=== PATIENT | female | born 1950 | race Caucasian/White ===

== ENCOUNTER 2023-07-17 14:11 | Emergency (ER) | payer BC, MEDICARE ==
[2023-07-17 14:56] LABS: #Monocytes 0.7 thou/uL (0.11-0.59); #Neutrophils 5.2 thou/uL (1.40-6.50); %Basophils 0.3 % (0.0-1.0); %Eosinophils 0.4 % (0.0-10.0); %Lymphocytes 22.2 % (21.0-51.0); %Monocytes 8.6 % (0.0-10.0); %Neutrophils 68.2 % (42.0-75.0); Hematocrit 38.9 % (36.0-47.0); Hemoglobin 13.1 g/dL (12.0-16.0); Mean Corpuscular HGB CONC 33.7 g/dL (32.0-36.0); Mean Corpuscular Hemoglobin 29.9 pg (27.0-31.0); Mean Corpuscular Volume 88.8 fl (78.0-98.0); Platelet Count 199 10x3/uL (130-400); RBC Distribution Width 13.4 % (11.5-14.5); Red Blood Cell (RBC) Count 4.38 mill/uL (4.20-5.40); White Blood Cell (WBC) Count 7.6 10x3/uL (4.8-10.8)
[2023-07-17 15:13] LABS: ALT (SGPT) 13 U/L (8-55); AST (SGOT) 22 U/L (5-34); Albumin 4.1 g/dL (3.4-4.8); Alkaline Phosphatase 79 U/L (40-110); Anion Gap 16 mmol/L (10-20); BUN (Urea Nitrogen) 8 mg/dL (9.8-20.1); Bilirubin, Total 0.7 mg/dL (0.2-1.2); Calc. Creatinine Clearance 0 mL/min (70-130); Calcium 9.2 mg/dL (7.8-10.44); Carbon Dioxide 19 mmol/L (23-31); Chloride 103 mmol/L (98-107); Estimated GFR 91; Globulin 2.4 g/dL (2.4-3.5); Glucose 88 mg/dL (83-110); Lipase 22 U/L (8-78); Protein, Total 6.5 g/dL (5.8-8.1); Sodium 134 mmol/L (136-145)
[2023-07-17 15:17] LABS: Troponin I Less than 0.010 ng/mL (< 0.028)
== END 2023-07-17 16:51 | disposition left against medical advice (07) ==
LOC: ERS 14:11
DX: Z53.21 Procedure and treatment not carried out due to patient leaving prior to being seen by health care provider (principal)
CPT/HCPCS: 36415; 71045; 80053; 83690; 84484; 85025; 93005

== ENCOUNTER → 2023-07-27 | Day surgery (SDC) | payer MEDICARE ==
[2023-07-26 10:47] VITALS: BMI 20.7
[~2023-07-27] MED LIST: Acetaminophen/Codeine 30-300mg Tablet PO PRN; Heparin 10,000 UNITS/ 10 ML VIAL ONE; Lidocaine 1% (PF) 30 ML VIAL ONE; Midazolam HCl 2 mg/2 ml Vial ONE; Nitroglycerin 0.4 MG TAB (25 Tab Bottle) SL PRN; Sodium Chloride 0.9% 1,000 ML IV SCH; fentaNYL 50 mcg/mL 1 mL Vial ONE
[2023-07-27 07:25] LABS: Cardiac Risk 3.9 (Less than 4.5)
== END ==
LOC: CCL 06:05
PROVIDERS: ATTEND Internal Medicine Cardiovascular Disease
DX: I25.10 Atherosclerotic heart disease of native coronary artery without angina pectoris (principal); E78.00 Pure hypercholesterolemia, unspecified; Z79.82 Long term (current) use of aspirin
CPT/HCPCS: 80061; 93458; C1894; J3010; 99152; 99153; J1644; J2001; J2250

== ENCOUNTER 2023-12-15 13:13 | Outpatient (CLI) | payer MEDICARE | END 2023-12-15 13:14 | disposition home or self-care (01) | LOC: BICMAMMO 13:13 | PROVIDERS: ATTEND Nurse Practitioner Family | DX: Z13.820 Encounter for screening for osteoporosis (principal); Z78.0 Asymptomatic menopausal state; M81.0 Age-related osteoporosis without current pathological fracture | CPT/HCPCS: 77080 ==

== ENCOUNTER 2025-08-10 11:08 | Outpatient (CLI) | payer MEDICARE ==
[2025-08-10 12:18] LABS: #Basophils 0.04 10x3/uL (0.0-0.2); #Eosinophils 0.08 10x3/uL (0.0-0.7); #Monocytes 0.60 10x3/uL (0.11-0.59); #Neutrophils 4.31 10x3/uL (1.40-6.50); %Basophils 0.6 % (0.0-1.0); %Eosinophils 1.1 % (0.0-10.0); %Lymphocytes 28.3 % (21.0-51.0); %Monocytes 8.5 % (0.0-10.0); %Neutrophils 61.4 % (42.0-75.0); Hematocrit 41.5 % (36.0-47.0); Hemoglobin 13.6 g/dL (12.0-16.0); Mean Corpuscular Hemoglobin 30.8 pg (27.0-31.0); Mean Corpuscular Volume 93.9 fL (78.0-98.0); Platelet Count 210 10x3/uL (130-400); Red Blood Cell (RBC) Count 4.42 mill/uL (4.20-5.40); White Blood Cell (WBC) Count 7.03 10x3/uL (4.8-10.8)
[2025-08-10 12:24] LABS: ALT (SGPT) 19 U/L (Less than 34); AST (SGOT) 35 U/L (11-34); Albumin 4.0 g/dL (3.1-4.5); Alkaline Phosphatase 84 U/L (40-110); Anion Gap 9 mmol/L (10-20); BUN (Urea Nitrogen) 17 mg/dL (9.8-20.1); Bilirubin, Total 0.5 mg/dL (0.3-1.2); Calc. Creatinine Clearance 0 mL/min (70-130); Calcium 9.2 mg/dL (7.8-10.44); Carbon Dioxide 25 mmol/L (23-31); Chloride 106 mmol/L (98-107); Globulin 2.6 g/dL (2.4-3.5); Glucose 105 mg/dL (83-110); Potassium 4.3 mmol/L (3.5-5.1); Sodium 136 mmol/L (136-145)
[2025-08-10 12:32] LABS: INR-International Normal Ratio 0.9; PTT 27.6 sec (22.9-36.1); Prothrombin Time 12.3 sec (12.0-14.7)
== END 2025-08-10 11:09 | disposition home or self-care (01) ==
LOC: LABBT 11:08
PROVIDERS: ATTEND Orthopaedic Surgery
DX: Z01.818 Encounter for other preprocedural examination (principal); M16.11 Unilateral primary osteoarthritis, right hip
CPT/HCPCS: 80053; 85025; 85610; 85730; 87081; 93005; 93010

== ENCOUNTER 2025-08-21 06:30 | Inpatient (IN) | payer MEDICARE ==
[2025-08-21] MEDS ORDERED: Tranexamic Acid 1,000 MG/10 ML VIAL ONE (07:14)
[2025-08-21] MEDS ORDERED: CEFAZOLIN 2 GM VIAL ONE ×2 (07:14→18:10)
[2025-08-21] MEDS ORDERED: Vancomycin 1 GM/200 ML (FROZEN) BAG ONE (07:15)
[2025-08-21] MEDS ORDERED: Lidocaine 1.5% w/Epi 1:200K 30 ML VIAL (Epid Use) ONE (08:10)
[2025-08-21] MEDS ORDERED: diphenhydrAMINE 50 MG/ML VIAL IVP PRN (08:30)
[2025-08-21] MEDS ORDERED: diphenhydrAMINE 25 MG CAP PO PRN (08:30)
[2025-08-21] MEDS ORDERED: HYDROcodone/Acetaminophen 5/325 mg Tablet PO PRN ×2 (08:30)
[2025-08-21] MEDS ORDERED: Ondansetron PF 4 MG/2 ML Vial IVP PRN (08:30)
[2025-08-21] MEDS ORDERED: diphenhydrAMINE 50 MG/ML VIAL IM PRN (08:30)
[2025-08-21] MEDS ORDERED: PROPOFOL 20 ML ONE (09:25)
[2025-08-21] MEDS ORDERED: Ondansetron PF 4 MG/2 ML Vial ONE (09:25)
[2025-08-21] MEDS ORDERED: Lidocaine 1% PF 5 ML VIAL ONE (09:25)
[2025-08-21] MEDS ORDERED: Rocuronium Bromide 10 MG/ML (10ML VIAL) ONE (09:25)
[2025-08-21] MEDS ORDERED: Bupivacaine 0.25% HCL 30 ML VIAL ONE (09:39)
[2025-08-21] MEDS ORDERED: SUGAMMADEX SODIUM 200 MG/2 ML VIAL ONE (10:46)
[2025-08-21] MEDS ORDERED: Acetaminophen 325 MG TAB PO PRN (12:04)
[2025-08-21] MEDS ORDERED: Ketorolac Tromethamine 30 MG (1 mL) VIAL ONE (18:08)
[2025-08-21] MEDS: Ketorolac Tromethamine 30 MG (1 mL) VIAL IVP SCH (18:17)
[2025-08-21] MEDS: Ferrous Gluconate 324 MG TAB PO SCH (21:34)
[2025-08-21] MEDS: Aspirin 81 mg Enteric Coated Tablet PO SCH (21:34)
[2025-08-21] MEDS: Senokot S 8.6-50 MG TAB PO SCH (21:34)
[2025-08-22] MEDS: FENTANYL 500 MCG/10 ML VIAL 500 MCG, Bupivacaine 0.75% 10 ML in Sodium Chloride 0.9% 80 ML EPIDURAL SCH (01:56)
[2025-08-22 05:18] LABS: Hematocrit 31.5 % (36.0-47.0); Hemoglobin 10.4 g/dL (12.0-16.0); Mean Corpuscular Hemoglobin 30.5 pg (27.0-31.0); Mean Corpuscular Volume 92.4 fL (78.0-98.0); Platelet Count 149 10x3/uL (130-400); Red Blood Cell (RBC) Count 3.41 mill/uL (4.20-5.40); White Blood Cell (WBC) Count 7.81 10x3/uL (4.8-10.8)
[2025-08-22] MEDS ORDERED: VIT C PO SCH (09:00)
[2025-08-22] MEDS ORDERED: ELDERBERRY PO SCH (09:00)
[2025-08-22] MEDS ORDERED: ZINC CITRATE PO SCH (09:00)
[2025-08-22] MEDS: Multivitamin W/ Minerals 1 TAB PO SCH (09:45)
[2025-08-22] MEDS ORDERED: HYDROcodone/Acetaminophen 10/325 mg Tablet PO PRN ×2 (10:01)
[2025-08-23 06:09] LABS: Hematocrit 32.1 % (36.0-47.0); Hemoglobin 10.4 g/dL (12.0-16.0); Mean Corpuscular Hemoglobin 30.1 pg (27.0-31.0); Mean Corpuscular Volume 93.0 fL (78.0-98.0); Platelet Count 141 10x3/uL (130-400); Red Blood Cell (RBC) Count 3.45 mill/uL (4.20-5.40); White Blood Cell (WBC) Count 9.11 10x3/uL (4.8-10.8)
[2025-08-23 11:05] VITALS: BMI 21.6
[2025-08-23 15:16] VITALS: TEMP 98.4
[2025-08-23 16:47] VITALS: BP 117/66
== END 2025-08-23 15:30 | disposition home or self-care (01) | DRG 470 ==
LOC: SDC 06:30 → SURG B 12:45 → OBSVTOIN 08-22 15:25
PROVIDERS: ADMIT Orthopaedic Surgery; ATTEND Orthopaedic Surgery
PROC: 0SR904Z Replacement of Right Hip Joint with Ceramic on Polyethylene Synthetic Substitute, Open Approach (ICD-10-PCS; principal; 2025-08-21)
DX: M16.11 Unilateral primary osteoarthritis, right hip (principal); D62 Acute posthemorrhagic anemia; Z95.5 Presence of coronary angioplasty implant and graft
CPT/HCPCS: 36415; 72170; 85027; C1713; C1776; J0665; J1100; J1885; J2704; J3010; J3373; J3490; J7030